=== PATIENT | male | born 1960 | race Caucasian/White ===

== ENCOUNTER 2017-03-31 07:53 | Day surgery (SDC) | payer OTHER ==
[~2017-03-31] VITALS: Ht 182.9 cm; Wt 103.2 kg
[~2017-03-31 07:53] MED LIST: ALLEGRA ALLERGY60 MG PO; CRANBERRY-PROB1 EACH PO; DILT120ERA PO; ELIQUIS5 MG PO; Exforge 5-3201 EACH PO; Hair, Skin & N1 EACH PO; OMEGA-3 FISH O1 EAC3 PO; PRAV20 PO
[2017-03-31] MEDS ORDERED: DIGOX250 MCG PO (11:43)
== END 2017-03-31 14:00 | disposition home or self-care (01) ==
LOC: MHTC 07:53
PROC: B211YZZ Fluoroscopy of Multiple Coronary Arteries using Other Contrast (ICD-10-PCS; principal; 2017-03-31)
DX: I48.1 Persistent atrial fibrillation (principal); R07.89 Other chest pain; I10 Essential (primary) hypertension; E78.5 Hyperlipidemia, unspecified
CPT/HCPCS: 93458; 99152; 99153; C1769; C1894; J1160; J1200; J1644; J2250; J2405; J3010; J7030; Q9967

== ENCOUNTER 2018-11-12 06:03 | Day surgery (SDC) | payer OTHER ==
[~2018-11-12] VITALS: Ht 182.9 cm; Wt 79.0 kg
[~2018-11-12 06:03] MED LIST changes: +DIGOX250 MCG PO
--- NOTE | 2018-11-12 06:16 | NUR ---
History, Chart, Medications and Allergies reviewed before start of procedure.Lungs clear T/O to Auscultation. Patient States Post-Procedure ride home has been arranged.
--- NOTE | 2018-11-12 09:50 | NUR ---
REPORT GIVEN TO GISELE FREITAS. WILL FINISH RECOVERY.
--- NOTE | 2018-11-12 10:20 | NUR ---
Patient up to Ambulate independently. Gait steady.INCISION X3 WITH DERMA ARZOLA-C/D/I. Discharge instructions reviewed with patient. Patient verbalizes understanding. Copy given to patient to take home. Discharged via wheelchair to private car for ride home.
== END 2018-11-12 10:20 | disposition home or self-care (01) ==
LOC: ORSCMMR 06:03 → ORD 07:30 → ORSCMMR 07:30 → ORD 10:00 → ORSCMMR 10:20 → ORD 12:00
PROVIDERS: Surgery
PROC: 8E0W4CZ Robotic Assisted Procedure of Trunk Region, Percutaneous Endoscopic Approach (ICD-10-PCS; principal; 2018-11-12 07:30)
PROC: 0YU54JZ Supplement Right Inguinal Region with Synthetic Substitute, Percutaneous Endoscopic Approach (ICD-10-PCS; principal; 2018-11-12 07:30)
DX: K40.90 Unilateral inguinal hernia, without obstruction or gangrene, not specified as recurrent (principal); I48.91 Unspecified atrial fibrillation; Z79.01 Long term (current) use of anticoagulants; I10 Essential (primary) hypertension; E78.00 Pure hypercholesterolemia, unspecified; Z79.899 Other long term (current) drug therapy
CPT/HCPCS: 49650; S2900; C1781; J0690; J1100; J1885; J2250; J2405; J2704; J3010; J7120